=== PATIENT | female | born 2000 | race Caucasian/White ===

== ENCOUNTER 2023-01-30 16:20 | Emergency (ER) | payer OTHER ==
[2023-01-30 16:30] VITALS: BP 126/66; PULSE 99; RESP 18; TEMP 98; BMI 19.2
[2023-01-30] MEDS ORDERED: ACETAMINOPHEN 325 MG TABLET (FP) PO ONE (17:50)
[2023-01-30] MEDS ORDERED: ONDANSETRON *ODT* 4 MG TABLET SL ONE (17:54)
[2023-01-30] MEDS ORDERED: ACETAMINOPHEN 325 MG TABLET (FP) ONE (17:54)
[2023-01-30] MEDS ORDERED: ONDANSETRON *ODT* 4 MG TABLET ONE (17:54)
[2023-01-30 18:26] LABS: HCG,QUALITATIVE URINE Negative
[2023-01-30 18:45] LABS: EPI CELLS 4 /uL (0-25.1); HYALINE CASTS 0 /uL (0-3.1); URINE APPEARANCE CLEAR; URINE BACTERIA 5 /uL (0-1359); URINE BILIRUBIN NEGATIVE (NEGATIVE); URINE COLOR YELLOW; URINE GLUCOSE (UA) NEGATIVE (NEGATIVE); URINE KETONE NEGATIVE (NEGATIVE); URINE LEUK ESTERASE NEGATIVE (NEGATIVE); URINE NITRITE NEGATIVE (NEGATIVE); URINE PROTEIN NEGATIVE (NEGATIVE); URINE RBC 13 /uL (0-23.9); URINE WBC 7 /uL (0-25.8)
== END 2023-01-30 21:41 | disposition home or self-care (01) ==
LOC: JER 16:20
DX: R10.2 Pelvic and perineal pain (principal); M54.50 Low back pain, unspecified; R11.2 Nausea with vomiting, unspecified; R30.0 Dysuria; R31.9 Hematuria, unspecified
CPT/HCPCS: 36415; 76830-TC; 81003; 84703; 87086; 87491; 87591; 99284-25; Q0162